=== PATIENT | male | born 1965 | race African-American/Black ===

== ENCOUNTER 2022-09-22 03:20 | Emergency (ER) | payer MEDICAID ==
[~2022-09-22] VITALS: Ht 177.8 cm; Wt 97.5 kg
[2022-09-22 06:10] VITALS: BP 143/70
[2022-09-22] MEDS ORDERED: CIPR2.5D14 EACHEYE (06:22)
== END 2022-09-22 06:24 | disposition home or self-care (01) ==
LOC: ER 03:46
DX: H10.9 Unspecified conjunctivitis (principal); Z60.2 Problems related to living alone